=== PATIENT | female | born 1985 | race Hispanic/Latino ===

== ENCOUNTER 2017-10-17 10:23 | Emergency (ER) | payer SELFPAY ==
[~2017-10-17] VITALS: Ht 154.9 cm; Wt 68.0 kg
[2017-10-17] MEDS ORDERED: TORADOL PO (11:00)
[2017-10-17] MEDS ORDERED: AUGMENTIN500TAB PO (11:00)
[2017-10-17 11:10] VITALS: BP 122/58
== END 2017-10-17 11:11 | disposition home or self-care (01) | DRG 153 ==
LOC: ED 10:23
DX: J02.9 Acute pharyngitis, unspecified (principal); K08.89 Other specified disorders of teeth and supporting structures; R68.84 Jaw pain